=== PATIENT | female | born 1965 | race American Indian/Alaskan Native ===

== ENCOUNTER 2017-03-16 06:09 | Emergency (ER) | payer OTHER ==
[2017-03-16 06:09] VITALS: BMI 25.7
--- NOTE | 2017-03-16 06:41 | C.PDOC ---
Chief Complaint (Nursing): Dizziness/Lightheaded Past Medical History Vital Signs: Last Vital Signs Temp 97.5 F L 03/16/17 06:18 Pulse 80 03/16/17 06:18 Resp 14 03/16/17 06:18 BP 156/95 H 03/16/17 06:18 Pulse Ox 100 03/16/17 06:18 - Medical History PMH: Migraine Denies: Chronic Kidney Disease - [facility] PERCUTAN NEEDLE BIOPSY OF BREAST (12/22/13) Family History: States: Unknown Family Hx, Hypertension (father) - Social History Hx Tobacco Use: No Hx Alcohol Use: No Hx Substance Use: No - Immunization History Hx Tetanus Toxoid Vaccination: No Hx Influenza Vaccination: No ED Course And Treatment O2 Sat by Pulse Oximetry: 100 Disposition - Disposition
--- NOTE | 2017-03-16 06:46 | C.PDOC ---
History Of Present Illness <Emilia Reyes - Last Filed: 03/16/17 06:55> <Leatha Bean - Last Filed: 03/17/17 17:15> 52 female presents to ED 1 day s/p head injury with a soccer ball with complaints of "room spinning" dizziness, unable to look in either right or left direction and especially when turning head towards left side. Patient presents with associated symptoms, which include nausea and vomiting. Denies any fever, upper respiratory infection, focal motor weakness, or neck stiffness. Patient states she could not ambulate due to the severity of symptoms and therefore called 911. (Emilia Reyes) History Per: Patient History/Exam Limitations: no limitations Onset/Duration Of Symptoms: Hrs Current Symptoms Are (Timing): Still Present Activity At Onset Of Symptoms: Sitting. denies: Lying Associated Symptoms Preceding Syncopal Episode: Worse With Standing, Vertigo, Vertigo Worse With Change In Head Position Seizure Or Post-ictal Symptoms: None Possible Causative Factor(s): Vertigo Fall Associated With With Symptoms: No Recent travel outside of the [place]: No - Symptoms Of CVA Associated Symptoms: denies: Impaired Speech, Seizure Activity, New Vision Deficit(Left), New Vision Deficit(Right), Decreased Ability To Walk, New Confusion <Emilia Reyes - Last Filed: 03/16/17 06:55> <Leatha Bean - Last Filed: 03/17/17 17:15> Chief Complaint (Nursing): Dizziness/Lightheaded Past Medical History Reviewed: Historical Data, Nursing Documentation, Vital Signs - Medical History PMH: Migraine Family History: States: Hypertension (father) - Social History Hx Tobacco Use: No Hx Alcohol Use: No Hx Substance Use: No - Immunization History Hx Tetanus Toxoid Vaccination: No Hx Influenza Vaccination: No <Emilia Reyes - Last Filed: 03/16/17 06:55> <Leatha Bean - Last Filed: 03/17/17 17:15> Vital Signs: Last Vital Signs Temp 98.2 F 03/16/17 10:01 Pulse 69 03/16/17 10:01 Resp 16 03/16/17 10:01 BP 151/70 H 03/16/17 10:01 Pulse Ox 99 03/16/17 10:01 - [facility] Procedures PERCUTAN NEEDLE BIOPSY OF BREAST (12/22/13) Review Of Systems Constitutional: Negative for: Fever, Chills Eyes: Negative for: Vision Change Gastrointestinal: Positive for: Nausea, Vomiting Musculoskeletal: Negative for: Shoulder Pain Neurological: Positive for: Dizziness (Room spinning). Negative for: Weakness <Emilia Reyes - Last Filed: 03/16/17 06:55> Physical Exam - Physical Exam Appears: Non-toxic, No Acute Distress, Other (Awake, alert, keeps head flexed position avoiding movements) Skin: Normal Color, Warm, Dry Head: Atraumatic, Normacephalic, Other (Positive vertiginous symptoms with turning to left) Eye(s): bilateral: Normal Inspection (No nystagmus), PERRL, EOMI Oral Mucosa: Moist Neck: Normal, No Midline Cervical Tenderness, No Paracervical Tenderness, Supple Chest: Symmetrical, No Tenderness Cardiovascular: Rhythm Regular Respiratory: Normal Breath Sounds, No Rales, No Rhonchi, No Wheezing Gastrointestinal/Abdominal: Soft, No Tenderness Extremity: Normal ROM (x4), Other (5/5 motor strength) Neurological/Psych: Oriented x3, Normal Speech, Normal Cranial Nerves (2-12 intact) <Emilia Reyes - Last Filed: 03/16/17 06:55> ED Course And Treatment O2 Sat by Pulse Oximetry: 100 <Emilia Reyes - Last Filed: 03/16/17 06:55> Medical Decision Making <Emilia Reyes - Last Filed: 03/16/17 06:55> <Leatha Bean - Last Filed: 03/17/17 17:15> Medical Decision Making: Impression: post traumatic vertigo Plan: Antivert and CT Head (Emilia Reyes) Disposition <Emilia Reyes - Last Filed: 03/16/17 06:55> Counseled Patient/Family Regarding: Studies Performed, Diagnosis, Need For Followup, Rx Given - Disposition Disposition Time: 09:50 <Leatha Bean - Last Filed: 03/17/17 17:15> - Disposition Disposition: HOME/ ROUTINE Condition: STABLE Additional Instructions: FOLLOW UP WITH YOUR DOCTOR/CLINIC IN 1-2 DAYS USE MEDICATION NEEDED DRINK PLENTY OF FLUIDS RETURN TO ER IF SYMPTOMS WORSEN Prescriptions: Meclizine [Meclizine*] 25 mg PO Q6 #20 tab Instructions: Vertigo (ED), Head Injury (ED) Forms: [facility] (South Korean), Work Excuse Print Language: SING[place]OREAN - Clinical Impression Clinical Impression: Dizziness, Closed head injury - Scribe Statement The provider has reviewed the documentation as recorded by the Scribe <Emilia Reyes - Last Filed: 03/16/17 06:55> <Leatha Bean - Last Filed: 03/17/17 17:15> - Scribe Statement Ramin Keith All medical record entries made by the Scribe were at my direction and personally dictated by me. I have reviewed the chart and agree that the record accurately reflects my personal performance of the history, physical exam, medical decision making, and the department course for this patient. I have also personally directed, reviewed, and agree with the discharge instructions and disposition. (Emilia Reyes) Addendum <Emilia Reyes - Last Filed: 03/16/17 06:55> <Leatha Bean - Last Filed: 03/17/17 17:15> Addendum: 03/16/17 08:29 Accession No. : [id number] Patient Name / ID : DALIA PRADHAN / [id number] Exam Date : 03/16/2017 07:53:28 ( Approved ) Study Comment : Sex / Age : F / 52Y Creator : Brenton Hung MD Dictator : Brenton Hung MD Cylinder Dyer : Audiology Director : Brenton Hung MD Approver2 : Report Date : 03/16/2017 08:22:21 My Comment : PROCEDURE: CT HEAD WITHOUT CONTRAST. HISTORY: vertigo COMPARISON: None available. TECHNIQUE: Axial computed tomography images were obtained through the head/brain without intravenous contrast. Radiation dose: Total exam DLP = 845.69 mGy-cm. This CT exam was performed using one or more of the following dose reduction techniques: Automated exposure control, adjustment of the mA and/or kV according to patient size, and/or use of iterative reconstruction technique. FINDINGS: HEMORRHAGE: No intracranial hemorrhage. BRAIN: No mass effect or edema. No atrophy or chronic microvascular ischemic changes. VENTRICLES: Unremarkable. No hydrocephalus. CALVARIUM: Unremarkable. PARANASAL SINUSES: Unremarkable as visualized. No significant inflammatory changes. MASTOID AIR CELLS: Unremarkable as visualized. No inflammatory changes. OTHER FINDINGS: No evidence of acute intracranial hemorrhage territorial infarct mass effect or midline shift. IMPRESSION: Normal CT of the Head. 03/16/17 08:33 Patient states she feels a little better, but still having some dizziness/ vertigo symptoms. CT head (-). IV NS bolus, IV ativan and IV zofran ordered. 03/16/17 09:49 Patient reassessed, states she feels much better, has tolerated PO and is able to ambulate normally. Will discharge home with Rx for meclizine. Instructed patient to follow up with PMD/clinic in 1-2 days, and she understands she should return to ED if symptoms worsen. (Leatha Bean)
[2017-03-16 07:28] VITALS: RESP 16
--- NOTE | 2017-03-16 08:24 | CT ---
PROCEDURE: CT HEAD WITHOUT CONTRAST. HISTORY: vertigo COMPARISON: None available. TECHNIQUE: Axial computed tomography images were obtained through the head/brain without intravenous contrast. Radiation dose: Total exam DLP = 845.69 mGy-cm. This CT exam was performed using one or more of the following dose reduction techniques: Automated exposure control, adjustment of the mA and/or kV according to patient size, and/or use of iterative reconstruction technique. FINDINGS: HEMORRHAGE: No intracranial hemorrhage. BRAIN: No mass effect or edema. No atrophy or chronic microvascular ischemic changes. VENTRICLES: Unremarkable. No hydrocephalus. CALVARIUM: Unremarkable. PARANASAL SINUSES: Unremarkable as visualized. No significant inflammatory changes. MASTOID AIR CELLS: Unremarkable as visualized. No inflammatory changes. OTHER FINDINGS: No evidence of acute intracranial hemorrhage territorial infarct mass effect or midline shift. IMPRESSION: Normal CT of the Head.
[2017-03-16] MEDS ORDERED: Sodium Chloride 0.9% 1,000 ML IV ONE (08:33)
[2017-03-16] MEDS ORDERED: Sodium Chloride 0.9% 1,000 ML ONE (09:01)
[2017-03-16 10:02] VITALS: BP 151/70; PULSE 69; TEMP 98.2; O2SAT 99
== END 2017-03-16 10:05 | disposition home or self-care (01) ==
LOC: C.ER 06:09
DX: R42 Dizziness and giddiness (principal); S09.90XA Unspecified injury of head, initial encounter; W21.02XA Struck by soccer ball, initial encounter; Y93.66 Activity, soccer; Y92.89 Other specified places as the place of occurrence of the external cause
CPT/HCPCS: 70450; 96361; 96374; 96375; 99285; J2060; J2405; J7040; Q0164